=== PATIENT | female | born 1955 | race African-American/Black ===

== ENCOUNTER 2016-11-06 09:33 | Emergency (ER) | payer OTHER ==
[2016-11-06 09:42] VITALS: BP 146/86
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
== END 2016-11-06 10:40 | disposition home or self-care (01) ==
LOC: ER 09:33
DX: Z04.1 Encounter for examination and observation following transport accident (principal); V49.40XA Driver injured in collision with unspecified motor vehicles in traffic accident, initial encounter; I10 Essential (primary) hypertension; Z88.5 Allergy status to narcotic agent
CPT/HCPCS: 99283